=== PATIENT | female | born 1990 | race Caucasian/White ===

== ENCOUNTER 2018-03-08 20:29 | Emergency (ER) | payer OTHER ==
[~2018-03-08] VITALS: Ht 172.7 cm; Wt 58.0 kg
[2018-03-08 22:15] VITALS: BP 116/67
== END 2018-03-08 22:16 | disposition home or self-care (01) ==
LOC: EMS 20:31
DX: S80.02XA Contusion of left knee, initial encounter (principal); W10.9XXA Fall (on) (from) unspecified stairs and steps, initial encounter; Y93.01 Activity, walking, marching and hiking; Y92.89 Other specified places as the place of occurrence of the external cause; Y99.8 Other external cause status
CPT/HCPCS: 29505; 99284

== ENCOUNTER 2019-02-23 22:29 | Emergency (ER) | payer OTHER ==
[~2019-02-23] VITALS: Ht 149.9 cm; Wt 61.4 kg
[2019-02-23 22:39] VITALS: BP 138/85
[2019-02-23] MEDS ORDERED: ACETAMINOPHEN 500 MG TABLET PO ONE (22:45)
== END 2019-02-23 23:03 | disposition home or self-care (01) ==
LOC: EMS 22:41
DX: H65.02 Acute serous otitis media, left ear (principal)